=== PATIENT | female | born 1980 | race Two or more races ===

== ENCOUNTER → 2019-06-10 | Outpatient (CLI) | payer OTHER ==
[~2019-06-10] MED LIST: ALDOMET250 MG PO; BIOCEL TABLET1 EACH PO; PRENATAL CAPLE1 EACH PO; PROTONIX40 MG PO; SYNTHROID88 MCG PO
== END | disposition home or self-care (01) ==
LOC: PRENATAL 09:30
DX: O36.80X1 Pregnancy with inconclusive fetal viability, fetus 1 (principal); Z36.82 Encounter for antenatal screening for nuchal translucency; O99.89 Other specified diseases and conditions complicating pregnancy, childbirth and the puerperium; O09.521 Supervision of elderly multigravida, first trimester; O10.011 Pre-existing essential hypertension complicating pregnancy, first trimester; O72.1 Other immediate postpartum hemorrhage

== ENCOUNTER → 2019-07-30 | Outpatient (CLI) | payer OTHER | END | disposition home or self-care (01) | LOC: PRENATAL 08:00 | DX: O99.89 Other specified diseases and conditions complicating pregnancy, childbirth and the puerperium (principal); O09.522 Supervision of elderly multigravida, second trimester; O35.3XX1 Maternal care for (suspected) damage to fetus from viral disease in mother, fetus 1; O10.012 Pre-existing essential hypertension complicating pregnancy, second trimester ==

== ENCOUNTER → 2019-10-01 | Outpatient (CLI) | payer OTHER | END | disposition home or self-care (01) | LOC: PRENATAL 08:00 | PROVIDERS: ATTEND Obstetrics & Gynecology | DX: O26.843 Uterine size-date discrepancy, third trimester (principal); O24.410 Gestational diabetes mellitus in pregnancy, diet controlled ==

== ENCOUNTER → 2019-11-05 | Outpatient (CLI) | payer OTHER | END | disposition home or self-care (01) | LOC: PRENATAL 08:00 | PROVIDERS: ATTEND Obstetrics & Gynecology | DX: O26.843 Uterine size-date discrepancy, third trimester (principal); O09.523 Supervision of elderly multigravida, third trimester; O10.013 Pre-existing essential hypertension complicating pregnancy, third trimester; O99.89 Other specified diseases and conditions complicating pregnancy, childbirth and the puerperium ==

== ENCOUNTER 2019-12-04 07:00 | Inpatient (IN) | payer OTHER ==
[~2019-12-04] VITALS: Ht 167.6 cm; Wt 3.6 kg
[~2019-12-04 07:00] MED LIST changes: +ALDOMET250 MG/5 M IV; +SYNTHROID125 MCG PO
[2019-12-07] MEDS ORDERED: PROTONIX40 MG PO (16:12)
[2019-12-07] MEDS ORDERED: LEVOTHYROXINE125 MCG PO (16:12)
[2019-12-07] MEDS ORDERED: PRENATAL CAPLE1 EAC1 PO (16:12)
[2019-12-07] MEDS ORDERED: METHYLDOPA250 MG PO (16:12)
[2019-12-07] MEDS ORDERED: BIOCEL TABLET1 EACH PO (16:12)
[2019-12-07] MEDS ORDERED: PANADOL EXTRA500 MG PO (16:12)
[2019-12-07] MEDS ORDERED: IBUPROFEN800 MG PO (16:12)
== END 2019-12-07 16:18 | disposition home or self-care (01) | DRG 785 ==
LOC: OB/GYN 07:00 → O/R 08:04 → SURG-SUITE 10:45 → OB/GYN 12:08 → SURG-SUITE 13:08
PROVIDERS: ADMIT Obstetrics & Gynecology; ATTEND Obstetrics & Gynecology
PROC: 0UL70ZZ Occlusion of Bilateral Fallopian Tubes, Open Approach (ICD-10-PCS; 2019-12-04)
PROC: 4A1HXCZ Monitoring of Products of Conception, Cardiac Rate, External Approach (ICD-10-PCS; 2019-12-04)
PROC: 10D00Z1 Extraction of Products of Conception, Low, Open Approach (ICD-10-PCS; principal; 2019-12-04 07:00)
DX: O82 Encounter for cesarean delivery without indication (principal); Z20.828 Contact with and (suspected) exposure to other viral communicable diseases; Z3A.38 38 weeks gestation of pregnancy; Z37.0 Single live birth; Z30.2 Encounter for sterilization